=== PATIENT | male | born 2005 | race Caucasian/White ===

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

== ENCOUNTER 2023-06-07 20:05 | Emergency (ER) | payer OTHER, SELFPAY ==
[2023-06-07 20:07] VITALS: BP 159/106; PULSE 125; RESP 18; TEMP 36.6; O2SAT 100; BMI 23.8
[2023-06-07 20:55] LABS: Absolute Lymphocyte Count 1.98 X10^3/uL (0.83-4.51); Absolute Neutrophil Count 4.8 X10^3/uL (2.0-7.7); Basophil# 0.08 X10^3/uL; Basophil% 1.1 % (0-1); Eosinophil# 0.19 X10^3/uL; Eosinophils% 2.5 % (0-5); Hematocrit 39.9 % (40-54); Hemoglobin 13.8 g/dL (13.0-16.5); Lymphocyte # 1.98 X10^3/ul (0.83-4.51); Lymphocyte % 26.1 % (19-41); Mean Corp Hgb Conc 34.6 g/dL (32-36); Mean Corpuscular Hgb 30.5 pg (27.0-32.0); Mean Corpuscular Volume 88.1 fL (80-94); Mean Platelet Vol. 10.2 fl (6.2-12.0); Monocyte# 0.57 X10^3/uL; Monocyte% 7.5 % (0-10); NRBC Flagged by Analyzer 0 % (0-5); Neutrophil # 4.76 X10^3/uL (2.7-7.7); Neutrophil % 62.5 % (47-70); Platelet Count 278 K/mm3 (150-450); RBC Distribution Width CV 12.8 % (11.6-14.6); Red Blood Count 4.53 M/mm3 (4.6-6.2); White Blood Count 7.6 K/mm3 (4.4-11.0)
[2023-06-07 21:10] LABS: Alcohol, Blood (Medical)-Serum < 3.0 mg/dL
[2023-06-07 21:12] LABS: Anion Gap 6 (5-15); BUN 18 mg/dL (7-18); BUN/Creat Ratio 17.5 RATIO (10-20); Calcium,Total 8.7 mg/dL (8.5-10.1); Chloride 109 mmol/L (98-107); Creatinine, Serum 1.03 mg/dL (0.70-1.30); EST Glomerular Filtration Rate 98 mL/min (>60); Est Glom Filt Rate - Afr Amer 119 mL/min (>60); Estimated Creatinine Clearance 100.34 ml/min; Glucose 103 mg/dL (74-106); Sodium Level 142 mmol/L (136-145)
[2023-06-07 21:44] VITALS: BP 106/69; PULSE 64; RESP 16; O2SAT 97
--- NOTE | 2023-06-07 22:08 | EDS_ITS ---
HPI HPI - Psych History of Present Illness Chief Complaint: Suicidal Informant: patient Onset/Context/Timing Onset: Yesterday Narrative Narrative: Patient presents secondary to suicidal ideation. He states he has had depression for some time and saw a counselor several years ago. He has never been on medication. He states everything seemed to come to a head last evening and after having a fight with his parents; he felt suicidal and seriously considered shooting himself with a gun. He states he did have access to firearms at the time. He told his parents about his thoughts today and they brought him to the emergency room for evaluation. [facility] Medical History (Updated 06/07/23 @ 22:[address] Meggan Thurman MD) Depression Home Medications hydroxyzine pamoate 25 mg capsule 25 mg PO Q8H 06/07/23 [History Last Taken Unknown] Allergy/AdvReac Type Severity Reaction Status Date / Time No Known Allergies Allergy Verified 06/07/23 21:51 Surgical History Hx of tympanostomy tubes Social History Smoking Status: Never smoker alcohol intake: never ROS ROS ED Constitutional Constitutional ED: Denies chills or fever(s) Eyes Eyes: Denies change in vision or discharge from eye(s) ENT ENT ED: Denies discharge from eye(s), rhinorrhea or sore throat Cardiovascular Cardiovascular: Denies chest pain or palpitations Respiratory/Chest Respiratory/Chest: Denies cough or dyspnea Gastrointestinal Gastrointestinal: Denies abdominal pain, nausea or vomiting Musculoskeletal Musculoskeletal: Denies back pain or extremity pain Integumentary Denies Abrasions or rash Neurologic Neurologic: Denies headache(s) or weakness Psychiatric Psychiatric: Reports depression and suicidal ideation Endocrine Endocrinology: Denies polydipsia or polyuria Allergic/Immunologic Allergic/Immunologic ED: Denies lip swelling or urticaria EXAM Physical Exam Const Vital Signs: 06/07/23 20:07 06/07/23 21:44 Temperature 98 F Temperature Source Temporal Pulse Rate 125 H 64 Respiratory Rate 18 16 Blood Pressure 159/106 H 106/69 Blood Pressure Mean 123 81 Pulse Ox 100 97 Oxygen Delivery Method Room Air Positive well nourished and well developed General Appearance ED: well developed HEENT Reports moist mucous membranes Eyes EOMs intact bilaterally Resp normal respiratory effort and clear to auscultation bilaterally Cardio Rate: regular rate Rhythm: regular rhythm GI non-tender Palpation: soft Extremity normal to inspection Neuro oriented x3 and no sensory deficits noted Sensorium / Orientation: alert Motor Exam: strength 5/5 throughout Psych cooperative Attitude: calm Activity / Motor Behavior: avoids eye contact Speech: soft Mood & Affect: depressed and flat affect Thought Content: suicidality Skin Lesions: no lesions Rashes: no rashes MDM MDM MDM Narrative Medical decision making narrative: Work-up for psychiatric clearance obtained. Lab Data Attestation: I reviewed the patient's lab results. Labs: Laboratory Results - last 24 hr 06/07/23 20:48 WBC 7.6 RBC 4.53 L Hgb 13.8 Hct 39.9 L MCV 88.1 MCH 30.5 MCHC 34.6 RDW Std Deviation 41.0 RDW Coeff of Jorgito 12.8 Plt Count 278 MPV 10.2 Immature Gran % (Auto) 0.300 Neut % (Auto) 62.5 Lymph % (Auto) 26.1 Franklin % (Auto) 7.5 Eos % (Auto) 2.5 Baso % (Auto) 1.1 H Absolute Neuts (auto) 4.8 Absolute Lymphs (auto) 1.98 Nucleated RBC % 0 Sodium 142 Potassium 3.0 L Chloride 109 H Carbon Dioxide 27.0 Anion Gap 6 BUN 18 Creatinine 1.03 Estim Creat Clear Calc 100.34 Est GFR (MDRD) Af Amer 119 Est GFR (MDRD) Non-Af 98 BUN/Creatinine Ratio 17.5 Glucose 103 Calcium 8.7 Ethyl Alcohol < 3.0 Treatment and Re-Evaluation Narrative: During CBC was normal white count 7.6 with a hemoglobin of 13.8. Differential unremarkable. Chemistry studies significant only for slightly low potassium at 3.0. Renal function is normal. EtOH is less than 3. Urine tox screen is pending at this time. Patient be signed out oncoming physician for further monitoring while awaiting evaluation by the counseling center. Discharge Plan Triage Chief Complaint: Suicidal ED Provider: Meggan Thurman Dx/Rx/DC Orders Prescriptions: No Action hydroxyzine pamoate 25 mg capsule 25 mg PO Q8H Primary Care Provider: Nika Denton Referrals: Nika Denton MD [Primary Care Provider] -
[2023-06-07 22:20] LABS: Amphetamine Urine VISTA NEGATIVE (<1000 ng/mL); Barbiturate Urine VISTA NEGATIVE (< 200 ng/mL); Benzodiazepine Urine VISTA NEGATIVE (< 200 ng/mL); Cocaine Urine VISTA NEGATIVE (< 300 ng/mL); Ecstacy Urine VISTA NEGATIVE (< 500 ng/mL); Methadone Urine VISTA NEGATIVE (< 300 ng/mL); PCP Urine VISTA NEGATIVE (< 25 ng/mL); THC Urine VISTA NEGATIVE (< 50 ng/mL); Vista UDS pH Range 5
[2023-06-08 06:00] VITALS: BP 126/78; PULSE 64; RESP 14; O2SAT 98
[2023-06-08 07:00] VITALS: BP 118/78; PULSE 64; RESP 14; O2SAT 99
--- NOTE | 2023-06-08 07:04 | NURSING ---
FAXED NEW FACESHEET WITH SS NUMBER, COPY OF PINK SLIP AND TOX SCREEN TO CRISIS
--- NOTE | 2023-06-08 07:14 | NURSING ---
FAXED TRANSFER SHEET WITH DATE AND TIME TO CRISIS
--- NOTE | 2023-06-08 09:32 | NURSING ---
[facility] DR LYNCH NURSE TO NURSE [phone] ROOM [id number]
[2023-06-08 10:20] VITALS: BP 124/78; PULSE 64; RESP 14; TEMP 36.4; O2SAT 99
== END 2023-06-08 10:23 | disposition short-term general hospital (02) ==
PROVIDERS: Emergency Provider Emergency Medicine; PCP Pediatrics; Visit Provider Emergency Medicine
DX: R45.851 Suicidal ideations (principal); F32.A Depression, unspecified
CPT/HCPCS: 80048; 80307; 82077; 85025; 87811; 99284